=== PATIENT | female | born 1930 | race Caucasian/White ===

== ENCOUNTER 2016-06-09 11:49 | Inpatient (IN) | payer OTHER ==
[~2016-06-09] VITALS: Ht 154.9 cm; Wt 55.9 kg
[~2016-06-09 11:49] MED LIST: VERA240C2 PO
[2016-06-09 12:58] LABS: Basophils # (auto) 0 uL; Basophils % (auto) 0.4 % (0.0-2.0); Eosinophils # (auto) 0 uL; Eosinophils % (auto) 0.5 % (0.0-7.0); Hematocrit 51.6 % (36.0-46.0); Hemoglobin 16.6 g/dL (12.2-16.2); Lymphocytes # (auto) 1.4 uL; Lymphocytes % (auto) 18.5 % (10.0-50.0); Mean Corpuscular Hemoglobin 29.7 pg (28.0-32.0); Mean Corpuscular Hgb Conc. 32.2 g/dL (32.0-36.0); Mean Corpuscular Volume 92.3 fL (80.0-100.0); Mean Platelet Volume 7.2 fL (7.4-10.4); Monocytes # (auto) 0.5 uL; Monocytes % (auto) 6.4 % (0.0-12.0); Neutrophils # (auto) 5.5 uL; Neutrophils % (auto) 74.2 % (37.0-80.0); Platelet Count (auto) 262 10^3/uL (140-450); Red Cell Distribution Width 13.5 % (11.6-16.0); White Blood Cell 7.4 10^3/uL (4.4-10.8)
[2016-06-09 13:27] LABS: Albumin 3.8 g/dL (3.4-5.0); Bilirubin, Total 0.3 mg/dL (0.2-1.0); Calcium 9.7 mg/dL (8.5-10.1); Magnesium 2.5 mg/dL (1.6-2.6); Potassium 4.4 mmol/L (3.5-5.1)
[2016-06-09] MEDS ORDERED: SODIUM CHLORIDE 0.9% 1,000 ML IV ONE (13:40)
[2016-06-09] MEDS ORDERED: ASPirin 81 mg TAB PO ONE (13:45)
[2016-06-09] MEDS ORDERED: MORPHINE SULF INJ 2 MG/ML SYRINGE 1ML IV PRN (14:00)
[2016-06-09] MEDS ORDERED: VERAPAMIL HCL 120 mg ER tab PO ONE (14:00)
[2016-06-09] MEDS ORDERED: NITROGLYCERIN 0.4 MG SL TAB SL PRN (14:00)
[2016-06-09] MEDS ORDERED: LORazepam 2MG/ML-1ML VIAL ONE (14:02)
[2016-06-09] MEDS ORDERED: LORazepam 2MG/ML-1ML VIAL IV ONE (14:15)
[2016-06-09] MEDS ORDERED: ATORVASTATIN 20 MG TAB PO SCH (22:00)
[2016-06-09 23:01] LABS: Urine RBC None Seen /hpf (0 - 4)
[2016-06-09 23:10] LABS: Urine Bilirubin Negative (Negative); Urine Blood Negative /uL (Negative); Urine Color Colorless (Yellow); Urine Glucose Normal (Normal); Urine Ketone Negative (Negative); Urine Nitrite POSITIVE (Negative); Urine Urobilinogen Normal (Negative)
[2016-06-09 23:14] VITALS: BP 138/69
[2016-06-10 06:04] VITALS: BP 139/69
[2016-06-10 06:05] VITALS: BP 139/69
[2016-06-10 09:00] VITALS: BP 158/93
[2016-06-10] MEDS ORDERED: VERAPAMIL HCL 120 mg ER tab PO SCH (10:00)
[2016-06-10] MEDS ORDERED: ASPirin 81 mg TAB PO SCH (10:00)
[2016-06-10 13:00] VITALS: BP 129/70
[2016-06-10 17:00] VITALS: BP 143/89
[2016-06-10 18:39] VITALS: BP 129/70
== END 2016-06-10 19:35 | disposition home health service (06) | DRG 308 ==
LOC: ER 11:55 → EDUNIT# 11:55 → TELE 11:56 → TELE-E-ADS 15:03 → TELE-WESTW 17:40
PROVIDERS: ADMIT Internal Medicine; ATTEND Internal Medicine
DX: I47.1 Supraventricular tachycardia (principal); G93.49 Other encephalopathy; M81.0 Age-related osteoporosis without current pathological fracture; I10 Essential (primary) hypertension; E11.9 Type 2 diabetes mellitus without complications; E78.5 Hyperlipidemia, unspecified; K27.9 Peptic ulcer, site unspecified, unspecified as acute or chronic, without hemorrhage or perforation; M79.7 Fibromyalgia; B02.9 Zoster without complications; Z87.19 Personal history of other diseases of the digestive system; Z90.710 Acquired absence of both cervix and uterus; Z82.49 Family history of ischemic heart disease and other diseases of the circulatory system; Z87.11 Personal history of peptic ulcer disease; Z88.5 Allergy status to narcotic agent
CPT/HCPCS: 36415; 70450; 71010; 80053; 81001; 82607; 83735; 84443; 84484; 85025; 85049; 93005; 93306; 94761; 96361; 96374

== ENCOUNTER 2016-06-21 01:22 | Emergency (ER) | payer OTHER ==
[~2016-06-21] VITALS: Ht 154.9 cm; Wt 57.2 kg
[2016-06-21] MEDS ORDERED: ADENOSINE 6 MG/2 ML INJ IV ONE ×2 (01:31→02:00)
[2016-06-21] MEDS ORDERED: LORazepam 2MG/ML-1ML VIAL IV ONE (02:15)
[2016-06-21 02:36] LABS: Albumin 3.5 g/dL (3.4-5.0); BUN/Creatinine Ratio 20.4; Potassium 3.9 mmol/L (3.5-5.1)
[2016-06-21 02:38] LABS: Basophils # (auto) 0.1 uL; Eosinophils # (auto) 0.1 uL; Eosinophils % (auto) 0.9 % (0.0-7.0); Hematocrit 48.5 % (36.0-46.0); Hemoglobin 15.9 g/dL (12.2-16.2); Lymphocytes # (auto) 1.1 uL; Lymphocytes % (auto) 17.4 % (10.0-50.0); Mean Corpuscular Hemoglobin 30.1 pg (28.0-32.0); Mean Corpuscular Hgb Conc. 32.8 g/dL (32.0-36.0); Mean Corpuscular Volume 91.8 fL (80.0-100.0); Mean Platelet Volume 7.6 fL (7.4-10.4); Monocytes # (auto) 0.7 uL; Monocytes % (auto) 11.2 % (0.0-12.0); Neutrophils # (auto) 4.4 uL; Neutrophils % (auto) 69.5 % (37.0-80.0); Platelet Count (auto) 209 10^3/uL (140-450); Red Cell Distribution Width 12.6 % (11.6-16.0); White Blood Cell 6.4 10^3/uL (4.4-10.8)
[2016-06-21 02:39] LABS: Bilirubin, Total 0.5 mg/dL (0.2-1.0); Total Protein 6.5 g/dL (6.4-8.2)
[2016-06-21 05:14] VITALS: BP 102/61
== END 2016-06-21 05:28 | disposition home or self-care (01) ==
LOC: ER 01:22 → EDBD 01:22 → ER 05:28
DX: F41.9 Anxiety disorder, unspecified (principal); I47.1 Supraventricular tachycardia; R07.89 Other chest pain; E11.9 Type 2 diabetes mellitus without complications; I10 Essential (primary) hypertension; Z88.6 Allergy status to analgesic agent
CPT/HCPCS: 36415; 71010; 80053; 84484; 85025; 93005; 94761; 96374; 96375; 99285; J0153; J2060; J7030

== ENCOUNTER 2016-09-28 06:26 | Inpatient (IN) | payer OTHER ==
[~2016-09-28] VITALS: Ht 154.9 cm; Wt 60.1 kg
[2016-09-28] MEDS ORDERED: LIDOCAINE 2%HCL (LOCAL ANESTH.) INJ 20ML MDV ONE (07:17)
[2016-09-28] MEDS ORDERED: fentaNYL CITRATE 100 MCG/2 ML VL ONE (07:30)
[2016-09-28] MEDS ORDERED: MIDAZOLAM HCL 1MG/1ML-2 ML VIAL ONE (07:30)
[2016-09-28] MEDS ORDERED: SODIUM CHLORIDE 0.9% 1,000 ML IV SCH (10:39)
[2016-09-28] MEDS ORDERED: MORPHINE SULF INJ 2 MG/ML SYRINGE 1ML IV PRN (10:45)
[2016-09-28] MEDS ORDERED: NITROGLYCERIN 0.4 MG SL TAB SL PRN (10:45)
[2016-09-28] MEDS ORDERED: CARV6.2551 PO (10:48)
[2016-09-28] MEDS ORDERED: ENOXAPARIN SOD 30 MG/0.3 ML SYRINGE SC ONE (12:00)
[2016-09-28 12:52] VITALS: BP 136/83
[2016-09-28 13:00] VITALS: BP 136/83
[2016-09-28] MEDS: SODIUM CHLOR 0.9% PF (SALINE LOCK) 10ML VIAL IV SCH ×2 (14:00→20:10)
[2016-09-28 17:00] VITALS: BP 159/98
[2016-09-28] MEDS: ACETAMINOPHEN 500 MG TAB PO PRN (18:06)
[2016-09-28] MEDS: HYDROcodone-ACET 5/325MG TAB PO PRN (18:38)
[2016-09-28] MEDS: ONDANSETRON HCL 4 MG/2 ML VIAL IV PRN (18:40)
[2016-09-28 22:00] VITALS: BP 129/73
[2016-09-29] MEDS: HYDROcodone-ACET 5/325MG TAB PO PRN ×2 (01:15→04:59)
[2016-09-29] MEDS: ONDANSETRON HCL 4 MG/2 ML VIAL IV PRN ×2 (01:15→08:44)
[2016-09-29] MEDS: SODIUM CHLOR 0.9% PF (SALINE LOCK) 10ML VIAL IV SCH ×2 (04:58→14:10)
[2016-09-29 05:00] VITALS: BP 128/82
[2016-09-29] MEDS: ACETAMINOPHEN 500 MG TAB PO PRN (08:44)
[2016-09-29 09:00] VITALS: BP 144/59
[2016-09-29] MEDS ORDERED: ASPirin 325 MG TAB PO SCH (10:00)
[2016-09-29] MEDS ORDERED: CARVEDILOL 3.125 MG TAB PO SCH (10:00)
[2016-09-29 13:12] VITALS: BP 132/58
[2016-09-29 13:21] VITALS: BP 136/59
== END 2016-09-29 16:45 | disposition home or self-care (01) | DRG 274 ==
LOC: CATH 06:26 → TELE-EAST 06:27
PROVIDERS: ADMIT Specialist; ATTEND Specialist
PROC: 02583ZZ Destruction of Conduction Mechanism, Percutaneous Approach (ICD-10-PCS; principal; 2016-09-28)
PROC: 02K83ZZ Map Conduction Mechanism, Percutaneous Approach (ICD-10-PCS; 2016-09-28)
PROC: 4A023FZ Measurement of Cardiac Rhythm, Percutaneous Approach (ICD-10-PCS; 2016-09-28)
PROC: 4A0234Z Measurement of Cardiac Electrical Activity, Percutaneous Approach (ICD-10-PCS; 2016-09-28)
DX: I47.1 Supraventricular tachycardia (principal); F41.9 Anxiety disorder, unspecified; M79.7 Fibromyalgia; Z90.710 Acquired absence of both cervix and uterus; N18.3 Chronic kidney disease, stage 3 (moderate)
CPT/HCPCS: 99152; J2250; J2405

== ENCOUNTER 2018-08-14 12:45 | Emergency (ER) | payer OTHER ==
[~2018-08-14] VITALS: Ht 154.9 cm; Wt 55.3 kg
[~2018-08-14 12:45] MED LIST changes: +CARV6.2551 PO; -VERA240C2 PO
[2018-08-14] MEDS ORDERED: HYDROcodone-ACET 5/325MG TAB PO ONE (14:00)
[2018-08-14] MEDS ORDERED: KETOROLAC TROMETH 30 MG/ML 1ML VIAL IM ONE (14:30)
[2018-08-14] MEDS ORDERED: methylPREDNISolone SOD SUCC 125 MG/2 ML VL IM ONE (14:45)
[2018-08-14 16:42] VITALS: BP 148/82
== END 2018-08-14 16:44 | disposition home or self-care (01) ==
LOC: ER 12:45
DX: K13.79 Other lesions of oral mucosa (principal); M19.90 Unspecified osteoarthritis, unspecified site; E11.9 Type 2 diabetes mellitus without complications; I10 Essential (primary) hypertension; Z90.710 Acquired absence of both cervix and uterus
CPT/HCPCS: 70486; 96372; 99284; J1885